=== PATIENT | female | born 1980 | race Caucasian/White ===

== ENCOUNTER 2017-04-17 10:47 | Emergency (ER) | payer OTHER ==
[~2017-04-17] VITALS: Ht 160 cm; Wt 136.1 kg
[~2017-04-17 10:47] MED LIST: ATARAX25 MG PO; AZATHIOPRINE50 MG PO; BISACODYL5 MG PO; CELEXA20 MG PO; CIPRO500 MG PO; CLARITIN10 MG PO; CLEOCIN HCL150 MG PO; CORDROL20 MG PO; DAY T PO; DECADRON1 MG PO; DELTASONE10 MG PO; DELTASONE20 M1 PO; DEXAMETHASONE PO; GOOD NEIGHBOR150 MG PO; HYDROCODONE BIT1 T11 PO; K-Dur 20MEQ20 MEQ PO; KEFLEX250 MG PO; KEFLEX500 MG PO; MOTRIN800 MG PO; MULTIVITAMIN FO1 CAP PO; NEURONTIN100 MG PO; NKHM PO; PEPCID20 MG PO; PERCOCET 325 MG1 TA4 PO; PREDNICOT20 MG PO; PREDNISONE10 MG PO; PREDNISONE20 MG PO; Percocet 325 MG1 TAB PO; TEFLARO600 MG IV; TRAMADOL HCL50 MG PO; ULTRAM50 MG PO; VALIUM10 MG PO; VICODIN 5/500 505 MG PO; VISTARIL25 M1 PO; VISTARIL50 MG PO; VOLTAREN50 M1 PO; ZOLOFT25 MG PO; ZYRTEC10 MG PO; [UNRECOGNIZED DRUG - CODE] SC; [UNRECOGNIZED DRUG - OTHER] PO; [UNRECOGNIZED DRUG - OTHER] PO
[2017-04-17] MEDS ORDERED: NAPROSYN500 MG PO (11:03)
[2017-04-17] MEDS ORDERED: PENICILLIN VK500 MG PO (11:03)
[2017-04-17] MEDS ORDERED: Peridex 473 ML473 ML PO (11:03)
[2017-04-17] MEDS ORDERED: CLINDAMYCIN150 MG PO (11:08)
== END 2017-04-17 11:10 | disposition home or self-care (01) ==
LOC: ED 10:47
DX: K08.89 Other specified disorders of teeth and supporting structures (principal); R03.0 Elevated blood-pressure reading, without diagnosis of hypertension; Z88.0 Allergy status to penicillin; Z88.2 Allergy status to sulfonamides; Z88.1 Allergy status to other antibiotic agents; Z88.8 Allergy status to other drugs, medicaments and biological substances; Z79.899 Other long term (current) drug therapy